=== PATIENT | female | born 1955 | race Caucasian/White ===

== ENCOUNTER 2017-09-01 11:52 | Emergency (ER) | payer OTHER ==
[~2017-09-01 11:52] MED LIST: COLACE100 M1 PO
--- NOTE | 2017-09-01 12:11 | ED GENERAL ADULT ---
History of Present Illness General Chief Complaint: Trunk Injury Stated Complaint: BACK PAIN Source: patient Exam Limitations: no limitations Vital Signs & Intake/Output Vital Signs & Intake/Output Vital Signs Date Time Temp Pulse Resp B/P B/P Pulse O2 O2 Flow FiO2 Mean Ox Delivery Rate 09/01 1725 97.7 71 18 142/80 97 Room Air 09/01 1543 98.0 88 16 128/79 93 Room Air 09/01 1304 97.7 89 18 132/85 92 Room Air 09/01 1211 Room Air 09/01 1207 97.8 87 20 131/85 94 Room Air Allergies Coded Allergies: venom-honey bee (ANAPHYLAXIS 09/01/17) Reconcile Medications Albuterol Sulfate (Proair Hfa) 90 MCG HFA.AER.AD 2 PUF INH Q4-6 PRN PRN WHEEZING Benztropine Mesylate 0.5 MG TABLET 1 TAB PO QAM MENTAL HEALTH (Reported) Chlorpromazine HCl 100 MG TABLET 1 TAB PO QPM MENTAL HEALTH (Reported) Chlorpromazine HCl 50 MG TABLET 1 TAB PO QAM MENTAL HEALTH (Reported) Chlorpromazine HCl 25 MG TABLET 1 TAB PO BID PRN MENTAL HEALTH (Reported) Divalproex Sodium 500 MG TABLET.DR 2 TAB PO QPM MENTAL HEALTH (Reported) Lactulose 10 GRAM/15 ML SOLUTION 30 ML PO DAILY PRN CONSTIPATION (Reported) [place] Carbonate 300 MG CAPSULE 1 CAP PO QPM MENTAL HEALTH (Reported) [place] Carbonate 150 MG CAPSULE 1 CAP PO QAM MENTAL HEALTH (Reported) Perphenazine 8 MG TABLET 1 TAB PO BID MENTAL HEALTH (Reported) Pravastatin Sodium 40 MG TABLET 1 TAB PO QPM CHOLESTEROL (Reported) Triage Note: PT BIBA FROM HOME WITH C/O BACK PAIN THAT BEGAN LAST NIGHT AFTER WASHING HER HAIR IN THE SINK. PT ALSO STATES THAT PAIN FEELS LIKE "IT MOVES TO MY CHEST AND ARMPIT" IF SHE IS LYING DOWN. HAS NOT TAKEN ANYTHING FOR THE PAIN. UPON FURTHER DESCRIPTION, PT CLAIMS INTERMITTENT NAUSEA x3 DAYS AND CURRENT BLE "CRAMPING" AT THE THIGHS Triage Nurses Notes Reviewed? yes Onset: Gradual Duration: day(s): (3) Timing: no prior history Injury Environment: home Severity: moderate Modifying Factors: Improves With: immobilization. Worsens With: movement. HPI: Patient is a 61-year-old female, daily smoker, history of bipolar, presenting to the emergency department a chief complaint of low back pain that started after she washed her hair in the sink yesterday evening. She continued to have low back pain this morning and then also developed abdominal discomfort cramping which she reports has been there for the past 3 days. Positive nausea but no vomiting. Has not taken anything for her symptoms at home. Just reports that she then developed chest pain with the abdominal discomfort which is now gone. Patient reporting that she has upper thigh pain bilaterally. No trauma. Denies numbness or tingling. Denies any arm pain. No headaches or visual changes. She has not seen her primary care physician in several years, she does follow-up with [facility], last visit was about 2 weeks ago. Still taking her medications daily as prescribed. Still smoking one pack a day. No history of blood clots. Denies palpitations. No shortness of breath. She does report intermittent coughing but no sputum production. (Tracey Vega) Past History Medical History Any Pertinent Medical History? see below for history Cardiovascular: hyperlipidemia Musculoskeletal: right prosthesis Psychiatric: bipolar disease, depression, schizophrenia Surgical History Surgical History: non-contributory Psychosocial History What is your primary language [place] Family History Hx Contributory? No (Tracey Vega) Review of Systems Review of Systems Constitutional: Reports: no symptoms. Comments Review of systems: See HPI, All other systems negative. Constitutional, no chills fever or weight loss HEENT: No visual changes no sore throat no congestion Cardiovascular: No palpitation , orthopnea or ankle swelling Skin, no jaundice no rashes Respiratory: No dyspnea sputum or hemoptysis GI: No nausea no vomiting : No dysuria No hematuria Muscle skeletal: no neck pain, Neurologic: No numbness no confusion, no headache Psych: No stress anxiety or depression,. Heme/endocrine: No bruising no bleeding no polyuria or polydipsia Immunology: No splenectomy or history of AIDS (Tracey Vega) Physical Exam Physical Exam General Appearance: well developed/nourished, no apparent distress, alert, awake , comfortable Comments: Well-developed well-nourished person in no acute distress HEENT: Pupils equally round and reactive to light and accommodation. Nose is atraumatic. External auditory canal and Tympanic membranes clear. Pharynx normal. No swelling or edema. Poor dentition noted. Neck: Supple, full range of motion. Back: Tender to palpation over the lumbar paraspinal muscles bilaterally. Near full range of motion somewhat limited secondary to pain with foreign flexion. Negative straight leg raise bilaterally. Cardiovascular: Regular rate and rhythms no murmurs rubs or gallops, normal JVP Respiratory: Chest nontender. No respiratory distress.breath sounds slightly diminished to auscultation bilaterally, with wheezes noted in the superior aspects of both lungs on auscultation. Abdomen: Soft, nontender nondistended, no appreciable organomegaly. Normal bowel sounds. No ascites, no rebound or guarding. Extremity: No edema, no calf tenderness to palpation on the left lower extremities. Patient has a prosthesis on the right lower extremity. Neuro: Alert oriented x3 Skin: No appreciable rash on exposed skin, skin is warm and dry. Psych: Mood and affect is normal, memory and judgment is normal. Core Measures ACS in differential dx? Yes CVA/TIA Diagnosis: No Sepsis Present: No Sepsis Focused Exam Completed? No (Emy WASSERMAN,Tracey) Progress Differential Diagnoses I considered the following diagnoses in my evaluation of the patient: ACS, muscle strain, COPD exacerbation, pneumonia, bronchitis, costochondritis, PE, gastritis, pancreatitis, aortic dissection Plan of Care: Orders Procedure Date/time Status TROPONIN LEVEL 09/01 1630 Complete EKG 09/01 1630 Active AEROSOL (GEN) 09/01 1220 Complete EKG 09/01 1213 Active Telemetry/Nursing Assoc 09/01 1210 Active TROPONIN LEVEL 09/01 1210 Complete LIPASE 09/01 1210 Complete D-DIMER 09/01 1210 Complete COMPREHENSIVE METABOLIC PANEL 09/01 1210 Complete CBC WITHOUT DIFFERENTIAL 09/01 1210 Complete B-TYPE NATRIURETIC PEP (BNP) 09/01 1210 Complete AMYLASE 09/01 1210 Complete Laboratory Tests 09/01/17 1625: Troponin I < 0.01 09/01/17 1253: Anion Gap 12, Estimated GFR > 60, BUN/Creatinine Ratio 13.8, Glucose 74, Calcium 10.4 H, Total Bilirubin 0.7, AST 19, ALT 18, Alkaline Phosphatase 61, Troponin I < 0.01, [id number] Pept 49.7, Total Protein 7.3, Albumin 4.4, Globulin 2.9, Albumin/Globulin Ratio 1.5, Amylase 104, Lipase 104, D-Dimer High Sensitivty < 200, CBC w Diff NO MAN DIFF REQ, RBC 4.72, MCV 96.6, MCH 32.8 H, MCHC 34.0, RDW 13.2, MPV 7.9, Gran % 47.0, Lymphocytes % 37.3, Monocytes % 13.0 H, Eosinophils % 2.3, Basophils % 0.4, Absolute Granulocytes 3.9, Absolute Lymphocytes 3.1, Absolute Monocytes 1.1 H, Absolute Eosinophils 0.2, Absolute Basophils 0 Diagnostic Imaging: Viewed by Me: Radiology Read. Discussed w/RAD: Radiology Read. Initial ED EKG: SINUS RHYTHM AT 67 BPM Repeat EKG: unchanged Comments: Patient medicated with aspirin on arrival. Patient has several complaints. No known past medical history of any cardiac issues. Patient does smoke daily. CBC, CMP, troponin, d-dimer sent to lab. Chest x-ray ordered. Patient will also have breathing treatment help with the wheezing and tightness. 09/01/2017 5:22:1 patient's vitals are stable. D-dimer is negative. No signs of widened mediastinum on chest x-ray. Unlikely PE or dissection. First and second troponin are negative. Patient educated on tobacco cessation. Patient will follow up with her PCP. Patient nontoxic. Compliant with plan. Discussed with Dr. Kearns and he agrees with plan. Patient has been asymptomatic entire emergency department. (Tracey Vega) Departure Departure Time of Disposition: 172 Disposition: HOME OR SELF CARE Condition: Stable Clinical Impression Primary Impression: Back pain Qualifiers: Back pain location: low back pain Chronicity: unspecified Back pain laterality: bilateral Sciatica presence: without sciatica Qualified Code: M54.5 - Low back pain Secondary Impressions: Chest pain Qualifiers: Chest pain type: unspecified Qualified Code: R07.9 - Chest pain, unspecified Referrals: Grey Higgins APRN (PCP/Family) Additional Instructions: Follow-up with your primary care physician, call to make an appointment. Take [id number] Tylenol for any aches or pains as directed. Quit smoking. Return for worsening symptoms or concerns. Departure Forms: Customer Survey General Discharge Information Prescriptions: Current Visit Scripts Albuterol Sulfate (Proair Hfa) 2 PUF INH Q4-6 PRN PRN WHEEZING #1 INHAL (Tracey Vega) PA/HIGHWAY MAINTENANCE TECHNICIAN Co-Sign Statement Statement: ED Attending supervision documentation- [] I saw and evaluated the patient. I have also reviewed all the pertinent lab results and diagnostic results. I agree with the findings and the plan of care as documented in the PA's/HIGHWAY MAINTENANCE TECHNICIAN's documentation. [X] I have reviewed the ED Record and agree with the PA's/HIGHWAY MAINTENANCE TECHNICIAN's documentation. [] Additions or exceptions (if any) to the PAs/HIGHWAY MAINTENANCE TECHNICIAN's note and plan are summarized below: [] (Ángel ZUNIGA,Renny Villalta) Critical Care Note Critical Care Note Critical Care Time: non-applicable (Tracey Vega)
[2017-09-01 13:09] LABS: ABSOLUTE BASOPHIL COUNT 0 /CUMM (0.0-0.2); ABSOLUTE EOSINOPHIL COUNT 0.2 /CUMM (0.0-0.7); ABSOLUTE GRANULOCYTE CT 3.9 /CUMM (1.4-6.5); ABSOLUTE LYMPH COUNT 3.1 /CUMM (1.2-3.4); ABSOLUTE MONOCYTE COUNT 1.1 /CUMM (0.10-0.60); BASOPHIL % 0.4 % (0.0-2.0); EOSINOPHIL % 2.3 % (0-5); HEMATOCRIT 45.6 % (37-47); MEAN CORPUSCULAR HGB 32.8 PG (27.0-31.0); MEAN CORPUSCULAR VOLUME 96.6 FL (81.0-99.0); MEAN PLATELET VOLUME 7.9 FL (7.4-10.4); PLATELET COUNT 273 /CUMM (130-400); RBC DISTRIBUTION WIDTH 13.2 % (11.5-14.5); RED BLOOD CELL CT 4.72 /CUMM (4.20-5.40); WHITE BLOOD CELL COUNT 8.3 /CUMM (4.8-10.8)
--- NOTE | 2017-09-01 13:34 | RADIOLOGY REPORT ---
EXAMINATION: XR PORTABLE CHEST CLINICAL INFORMATION: 61-year-old female patient with shortness of breath and chest pain. COMPARISON: Chest x-ray 04/17/2017. TECHNIQUE: Portable AP semierect view of the chest was obtained. FINDINGS: The heart remains normal in size. There is chronic pleural thickening/scarring in the region of the left costophrenic angle. However, there is no acute evidence of consolidating pneumonia or pulmonary edema. The small right pleural effusion seen in April 2017 has resolved. IMPRESSION: No acute pulmonary parenchymal or pleural disease.
[2017-09-01] MEDS ORDERED: CHLORPROMAZINE50 M2 PO (15:33)
[2017-09-01] MEDS ORDERED: CHLORPROMAZINE25 M2 PO (15:33)
[2017-09-01] MEDS ORDERED: BENZTROPINE ME0.5 M1 PO (15:33)
[2017-09-01] MEDS ORDERED: CHLORPROMAZINE100 M2 PO (15:33)
[2017-09-01] MEDS ORDERED: DIVALPROEX SOD500 M2 PO (15:34)
[2017-09-01] MEDS ORDERED: LITHIUM CARBON300 M4 PO (15:36)
[2017-09-01] MEDS ORDERED: LACTULOSE10 GM/153 PO (15:36)
[2017-09-01] MEDS ORDERED: LITHIUM CARBON150 M1 PO (15:36)
[2017-09-01] MEDS ORDERED: PRAVASTATIN SOD40 M2 PO (15:37)
[2017-09-01] MEDS ORDERED: PERPHENAZINE8 M1 PO (15:37)
[2017-09-01 17:25] VITALS: BP 142/80
[2017-09-01] MEDS ORDERED: PROAIR HFA8.5 GM INH (17:30)
== END 2017-09-01 17:40 ==
LOC: ERH 11:52
PROVIDERS: Physician Assistant
DX: M54.5 Low back pain (principal); R07.9 Chest pain, unspecified
CPT/HCPCS: 1263; 71045; 93005; 93010